=== PATIENT | male | born 1960 | race Caucasian/White ===

== ENCOUNTER → 2016-08-20 | Outpatient (CLI) | payer BC ==
[~2016-08-20] MED LIST: ADVIN10/60 INH; ASCO100T4 PO; CYAN100020 PO; FLVHFA110 INH; METO25TA3 PO; METO50TA7 PO; OXYC-57 PO
--- NOTE | 2016-08-20 13:27 | DIAGNOSTIC IMAGING REPORT ---
ABDOMEN 2VIEW W/PA CHEST RTN CLINICAL HISTORY: SEVERE ABDOMINAL CRAMPING, CONSTIPATION COMPARISON STUDY: No previous studies for comparison. FINDINGS: The soft tissues, psoas shadows, renal outlines and intestinal gas pattern appear normal. There is no evidence for bowel obstruction. There is no evidence for free intraperitoneal air. No abnormal abdominal calcifications are seen. A frontal view of the chest was performed and is unremarkable. IMPRESSION: Normal study. Electronically signed by: Ladarius Finch M.D. 08/20/2016 1:25 PM Dictated Date/Time: 08/20/2016 1:25 PM
== END | disposition home or self-care (01) ==
LOC: C.RAD1850 12:56
PROVIDERS: ATTEND Nurse Practitioner Family
DX: R10.84 Generalized abdominal pain (principal); K59.00 Constipation, unspecified

== ENCOUNTER 2016-08-22 18:22 | Emergency (ER) | payer BC ==
[~2016-08-22] VITALS: Ht 188 cm; Wt 93.0 kg
[~2016-08-22 18:22] MED LIST changes: -ASCO100T4 PO; -CYAN100020 PO; -FLVHFA110 INH; -METO25TA3 PO; -METO50TA7 PO; -OXYC-57 PO
[2016-08-22 18:24] VITALS: TEMP 37.3; Ht 188 cm; Wt 93.0 kg
[2016-08-22] MEDS ORDERED: SODIUM CHLORIDE 0.9% 1000ML 1,000 ML IV STA (21:06)
[2016-08-22] MEDS ORDERED: OPTIRAY 320 IV PRN (21:30)
[2016-08-22 21:39] LABS: BASO % 0.4 %; BASO ABS # 0.03 K/uL (0-0.2); COMPLETE YES; EOS % 2.2 %; HEMATOCRIT 43.5 % (42-52); IG% 0.7 %; LYMPH % 17.8 %; LYMPH ABS # 1.23 K/uL (1.2-3.4); MEAN CELL VOLUME 87.3 fL (80-100); MEAN CORPUSCULAR HEMOGLOBIN 30.5 pg (25-34); MEAN CORPUSCULAR HGB CONC 34.9 g/dl (32-36); MEAN PLATELET VOLUME 10.3 fL (7.4-10.4); MONO % 12.1 %; NEUT % 66.8 %; PLATELET COUNT 162 K/uL (130-400); RED BLOOD COUNT 4.98 M/uL (4.7-6.1); WHITE BLOOD COUNT 6.92 K/uL (4.8-10.8)
[2016-08-22 21:39] LABS: URINE APPEARANCE CLEAR (CLEAR); URINE COLOR DK YELLOW; URINE NITRITE NEG (NEG); URINE PH 5.5 (4.5-7.5); URINE SPECIFIC GRAVITY 1.025 (1.000-1.030); UROBILINOGEN NEG (NEG)
[2016-08-22] MEDS ORDERED: FLVHFA110 INH (21:40)
[2016-08-22] MEDS ORDERED: METO25TA3 PO (21:43)
[2016-08-22 21:47] LABS: ISTAT CREATININE 0.9 mg/dl (0.6-1.3); ISTAT IONIZED CALCIUM 1.08 mmol/l (1.12-1.32)
[2016-08-22 21:57] LABS: MANUAL MICROSCOPIC REQUIRED? NO; REVIEW REQ? NO; URINE BILIRUBIN NEG (NEG)
[2016-08-22 21:57] LABS: BUN/CREATININE RATIO 11.2 (10-20); POTASSIUM 3.7 mmol/L (3.5-5.1)
[2016-08-22 22:00] LABS: ALB/GLOB RATIO 1.1 (0.9-2)
--- NOTE | 2016-08-22 22:15 | EMERGENCY ROOM VISIT NOTE ---
History First contact with patient: 20:50 Chief Complaint: ABNORMAL LABS Stated Complaint: ABNORMAL LABS, ABDOMINAL PAIN, FEVER History of Present Illness The patient is a 55 year old male who presents to the Emergency Room with complaints of upper abdominal pain for the past 2 weeks. Patient states he has a constant dull pain, with intermittent episodes of severe intense pain. The pain is primarily in the epigastric region but does radiate to the right upper quadrant. Patient reports associated fevers/chills and night sweats. He has also noted that his urine is darker than usual, and notes light colored stools for the past several days. There is no associated nausea or vomiting. Patient states that he saw an urgent care provider yesterday where he had lab testing done and was told that his "liver tests and white blood cells were elevated." Today the patient saw his PCP, where he had right upper quadrant ultrasound done that was inconclusive, but did show some gallbladder sludge. Patient states his PCP encouraged him to come to the ER for further evaluation and possible CT scan. The patient denies chest pain, shortness of breath, palpitations, back pain, constipation or diarrhea. Review of Systems GENERAL: + Fevers, chills, malaise, night sweats. Denies unintentional weight changes. HEENT: Denies dizziness, visual problems, hearing loss, tinnitus. Denies difficulty swallowing or oral lesions. PULMONARY: Denies cough, shortness of breath, sputum production or hemoptysis. CARDIOVASCULAR: Denies chest pain, palpitations, dyspnea on exertion, orthopnea or peripheral edema. GASTROINTESTINAL: + Abdominal pain, light colored stools. Denies diarrhea, constipation, nausea, vomiting, or hematochezia. GENITOURINARY: Denies dysuria, frequency, urgency or nocturia. + Dark urine. NEUROLOGIC: Denies history of epilepsy, CVA, TIA or chronic headaches. MUSCULOSKELETAL: Denies history of joint tenderness/swelling. SKIN: Denies rashes or lesions. PSYCHIATRIC: Denies history of depression or mental illness. ENDOCRINE: Denies history of diabetes, thyroid disorders. Social History Smoking Status: Never Smoker Marital Status: Housing Status: lives with family Occupation Status: employed Current/Historical Medications Scheduled Fluticasone Propionate (Flovent Hfa), 2 PUFFS INH BID Metoprolol Succ (Toprol Xl) (Toprol-Xl), 37.5 MG PO DAILY Allergies Coded Allergies: No Known Allergies (Unverified , NONE, 08/22/16) Physical Exam Vital Signs Date Time Temp Pulse Resp B/P (MAP) Pulse Ox O2 Delivery O2 Flow Rate FiO2 08/22/16 22:18 79 18 137/85 98 Room Air 08/22/16 20:42 84 08/22/16 20:40 85 18 156/93 96 Room Air 08/22/16 18:24 37.3 48 17 154/74 99 Room Air Physical Exam CONSTITUTIONAL: No acute distress. Nontoxic appearing. Well hydrated, well appearing and well nourished. Alert and oriented X 4 with normal affect. HEENT: Normocephalic, atraumatic. Pupils equal, round and reactive to light, EOMI. TMs normal. Pharynx normal. Moist mucous membranes. Icteric sclera bilaterally. NECK: Supple, full active range of motion without discomfort. RESPIRATORY: Clear to auscultation bilaterally with no wheezing, crackles, rhonchi or stridor. Equal expansion bilaterally. CARDIOVASCULAR: Regular rate and rhythm with no murmurs, rubs or gallops. Normal peripheral perfusion. No edema. GASTROINTESTINAL: Tenderness to palpation of the epigastric and right upper quadrant. No rebound, no guarding, negative Franklin's. Soft, nondistended. Bowel sounds present in all quadrants. MUSCULOSKELETAL: Full range of motion of all joints without discomfort. INTEGUMENTARY: No rash or other significant dermatologic conditions noted. Jaundiced. NEUROLOGIC: Cranial nerves II-XII grossly intact. No focal neurologic deficits noted. Medical Decision & Procedures ER Provider Diagnostic Interpretation: ABDOMINAL ULTRASOUND COMPLETE HISTORY: Abnormal liver function test AB Pain, abnormal RESULTS OF LIVER FUNCTION TEST. COMPARISON: None. FINDINGS: Pancreas: The pancreas demonstrates a normal echotexture. Liver: Several small cysts measuring up to 2 cm. Otherwise uniform echogenicity. Gallbladder: Small amount of sludge within the region of the gallbladder neck. No definite shadowing gallstones. Gallbladder wall 3 mm. CBD: 5 mm Kidneys: No hydronephrosis. Spleen: Normal in size. Aorta: Normal in caliber. IVC: Patent. IMPRESSION: 1. Small amount of sludge within the gallbladder lumen at the level of the gallbladder neck. 2. Normal caliber bile duct. Gallbladder wall top normal at 3 mm 3. Several small hepatic cysts. 4. Otherwise negative study. ----- CT OF THE ABDOMEN AND PELVIS WITH CONTRAST CLINICAL HISTORY: Right upper quadrant pain, fever, leukocytosis and jaundice. COMPARISON STUDY: Abdominal ultrasound August 22, 2016. TECHNIQUE: Following IV administration of 93 mL of Optiray-320, axial images of the abdomen and pelvis were obtained from the lung bases to the proximal femurs. Images were reviewed in the axial, sagittal, and coronal planes. IV contrast was administered without complication. CT DOSE: 463.85 mGy.cm FINDINGS: Lung bases are clear. Water attenuation hepatic lesions measure up to 2 cm. These reflect cysts. A 1.3 cm hypodense lateral segment lesion may have nodular peripheral enhancement and could reflect a small hemangioma. There are several hepatic lesions which are too small to characterize. The spleen, adrenal glands, kidneys and pancreas are normal. There is a diverticulum of the second portion of the duodenum. There is minimal hyperdense material within the dependent aspect of this diverticulum. This is unlikely to be within the distal common bile duct. There is no biliary or pancreatic ductal dilatation. The main, left and right portal veins are patent. There is no peripancreatic or pericholecystic infiltration. No hydronephrosis. There are no enlarged lymph nodes. The appendix is normal. No suspicious osseous lesions are present. IMPRESSION: 1. No acute process within the abdomen or pelvis. 2. No biliary or pancreatic ductal dilatation. No pancreatic mass identified by CT. 3. Multiple hepatic cysts. Several hypodense hepatic lesions which are too small to characterize. Possible 1.3 cm left hepatic lobe hemangioma. Laboratory Results 08/22/16 21:20 Red Blood Count 4.98, Mean Corpuscular Volume 87.3, Mean Corpuscular Hemoglobin 30.5, Mean Corpuscular Hemoglobin Concent 34.9, Mean Platelet Volume 10.3, Neutrophils (%) (Auto) 66.8, Lymphocytes (%) (Auto) 17.8, Monocytes (%) (Auto) 12.1, Eosinophils (%) (Auto) 2.2, Basophils (%) (Auto) 0.4, Neutrophils # (Auto ) 4.62, Lymphocytes # (Auto) 1.23, Monocytes # (Auto) 0.84, Eosinophils # (Auto ) 0.15, Basophils # (Auto) 0.03 08/22/16 21:20 Test 08/22/16 20:35 08/22/16 21:20 08/22/16 21:28 08/22/16 21:35 Urine Color DK YELLOW Urine Appearance CLEAR (CLEAR) Urine pH 5.5 (4.5-7.5) Urine Specific Stafford 1.025 (1.000-1.030) Urine Protein 2+ (NEG) Urine Glucose (UA) NEG (NEG) Urine Ketones 1+ (NEG) Urine Occult Blood NEG (NEG) Urine Nitrite NEG (NEG) Urine Bilirubin NEG (NEG) Urine Urobilinogen NEG (NEG) Urine Leukocyte Esterase NEG (NEG) Urine WBC (Auto) 1-5 /hpf (0-5) Urine RBC (Auto) 0-4 /hpf (0-4) Urine Hyaline Casts (Auto) 1-5 /lpf (0-5) Urine Epithelial Cells (Auto) 5-10 /lpf (0-5) Urine Bacteria (Auto) NEG (NEG) White Blood Count 6.92 K/uL (4.8-10.8) Red Blood Count 4.98 M/uL (4.7-6.1) Hemoglobin 15.2 g/dL (14.0-18.0) Hematocrit 43.5 % (42-52) Mean Corpuscular Volume 87.3 fL (80-100) Mean Corpuscular Hemoglobin 30.5 pg (25-34) Mean Corpuscular Hemoglobin Concent 34.9 g/dl (32-36) Platelet Count 162 K/uL (130-400) Mean Platelet Volume 10.3 fL (7.4-10.4) Neutrophils (%) (Auto) 66.8 % Lymphocytes (%) (Auto) 17.8 % Monocytes (%) (Auto) 12.1 % Eosinophils (%) (Auto) 2.2 % Basophils (%) (Auto) 0.4 % Neutrophils # (Auto) 4.62 K/uL (1.4-6.5) Lymphocytes # (Auto) 1.23 K/uL (1.2-3.4) Monocytes # (Auto) 0.84 K/uL (0.11-0.59) Eosinophils # (Auto) 0.15 K/uL (0-0.5) Basophils # (Auto) 0.03 K/uL (0-0.2) RDW Standard Deviation 40.8 fL (36.4-46.3) RDW Coefficient of Variation 12.7 % (11.5-14.5) Immature Granulocyte % (Auto) 0.7 % Immature Granulocyte # (Auto) 0.05 K/uL (0.00-0.02) Est Creatinine Clear Calc Drug Dose 98.2 ml/min Estimated GFR () 98.5 Estimated GFR (Non- 84.9 BUN/Creatinine Ratio 11.2 (10-20) Calcium Level 9.9 mg/dl (8.5-10.1) Total Bilirubin 1.4 mg/dl (0.2-1) Aspartate Amino Transf (AST/SGOT) 23 U/L (15-37) Alanine Aminotransferase (ALT/SGPT) 135 U/L (12-78) Alkaline Phosphatase 96 U/L (45-117) Total Protein 7.1 gm/dl (6.4-8.2) Albumin 3.7 gm/dl (3.4-5.0) Globulin 3.4 gm/dl (2.5-4.0) Albumin/Globulin Ratio 1.1 (0.9-2) Lipase 109 U/L (73-393) Bedside Lactic Acid Venous 1.01 mmol/L (0.90-1.70) Bedside Hemoglobin 15.0 g/dl (14.0-18.0) Bedside Hematocrit 44 % (42-52) Bedside Sodium 135 mEq/L (135-144) Bedside Potassium 3.8 mEq/L (3.3-5.0) Bedside Chloride 96 mEq/L (101-112) Bedside Total CO2 27 mEq/l (24-31) Anion Gap 18.0 mmol/L (16-25) Bedside Blood Urea Nitrogen 11 mg/dl (7-18) Bedside Creatinine 0.9 mg/dl (0.6-1.3) Bedside Glucose (other) 108 mg/dl (70-99) Bedside Ionized Calcium (Randall) 1.08 mmol/l (1.12-1.32) Medications Administered Medications (Trade) Dose Ordered Sig/Jaya Route Start Time Stop Time Status Last Admin Dose Admin Sodium Chloride 1,000 ml @ 999 mls/hr Q1H1M STAT IV 08/22/16 21:06 08/22/16 22:06 DC 08/22/16 21:06 999 MLS/HR Medical Decision CC: Patient presenting with complaint of upper abdominal pain 2 weeks Interpretation of Labs: No leukocytosis, no anemia, no significant electrolyte abnormalities, normal renal function, slightly elevated ALT and T bili, liver enzymes otherwise normal, normal lipase, normal lactic acid. No UTI. Differential Diagnosis: Includes, but not limited to cholecystitis, cholelithiasis, cholangitis, gastritis, peptic ulcer disease, pancreatitis, intra-abdominal abscess, hepatic mass Medication Reconciliation: I attest that I have personally reviewed the patient' s current medication list. Vital signs review: I reviewed the patient's vital signs and interpret them as follows: T: Afebrile; BP: Hypertensive; HR: bradycardic (asymptomatic); RR: WNL; Pulse Ox: WNL on RA. Blood pressure screening: The patient was found to have an elevated blood pressure and was referred to their primary doctor for recheck and further treatment. Summary: Patient was evaluated at bedside, history of physical exam performed. Patient is alert and oriented, no acute distress and nontoxic appearing. He appears mildly jaundiced and sclera are slightly icteric. He has very mild tenderness to palpation of the epigastric and right upper quadrant abdomen. No peritoneal signs. Negative Franklin sign. Patient currently denies any pain at rest and declines pain medication. Right upper quadrant ultrasound that was done earlier today was reviewed at bedside with the patient, noting some gallbladder sludge but no evidence of acute cholecystitis. Given patient's jaundiced appearance, obstructive process cannot be ruled out. Also concerned regarding history of fever/chills and night sweats. Orders were placed at bedside for labs, UA, IV fluid bolus, CT abdomen/pelvis with contrast to evaluate for intra-abdominal abscess/mass. Patient discussed with Dr. Cottrell, who agrees with my assessment and plan. Labs reviewed as above, show mildly elevated T bili and ALT, otherwise unremarkable. No leukocytosis. CT abd/pel reviewed, no acute process, no obstructive process. Patient was updated on all results and plan for discharge. Patient remains well appearing and denies any pain currently. I instructed the patient to follow up closely with his PCP and recommended referral to GI for further evaluation of his gallbladder. Patient verbalized understanding and agreement with this plan. Patient reassessed multiple times throughout ED stay, he remained stable and pain free, stable at time of discharge. Impression Primary Impression: Right upper quadrant abdominal pain Additional Impression: Jaundice Departure Information Dispostion Home / Self-Care Condition GOOD Referrals Doe, Dongsheng,M.D. (PCP) Patient Instructions ED Abdominal Pain Gallstone Poss, [facility] Additional Instructions You have been treated in the Emergency Department your Abdominal Pain. Laboratory results and imaging studies have ruled out any emergent causes for your abdominal pain which would warrant admission or surgery. For pain control, you can use the following [id number] medicines (if >12 yo): - Regular strength (325mg/tab) Tylenol (acetaminophen) 2 tabs every 4-6 hours as needed. Do not exceed 10 tablets in a 24 hour period. Avoid taking more than 4 grams (4000 mg) of Tylenol per day. This includes any other sources of acetaminophen you may take on a regular basis. - Regular strength (200 mg/tab) Advil (ibuprofen) 1-2 tabs every 4-6 hours as needed. Do not exceed a dose of 3200 mg per day. Drink plenty of water and stay well hydrated. As with any trip to the Emergency Department, you should follow-up with your Primary Care Provider in 2-3 days from today's visit. You should discuss possible referral to a binder layer specialist to further evaluate for possible gallbladder disease. Possible tests for this would include a HIDA scan , MRCP, or ERCP. You should discuss this with your PCP. Return to the emergency department if your symptoms persist despite treatment plan outlined above or if the following symptoms occur: increased fevers, chills , worsening nausea/vomiting, blood in your stool or urine, or any other concerns. Problem Qualifiers
--- NOTE | 2016-08-22 22:30 | DIAGNOSTIC IMAGING REPORT ---
CT OF THE ABDOMEN AND PELVIS WITH CONTRAST CLINICAL HISTORY: Right upper quadrant pain, fever, leukocytosis and jaundice. COMPARISON STUDY: Abdominal ultrasound August 22, 2016. TECHNIQUE: Following IV administration of 93 mL of Optiray-320, axial images of the abdomen and pelvis were obtained from the lung bases to the proximal femurs. Images were reviewed in the axial, sagittal, and coronal planes. IV contrast was administered without complication. CT DOSE: 463.85 mGy.cm FINDINGS: Lung bases are clear. Water attenuation hepatic lesions measure up to 2 cm. These reflect cysts. A 1.3 cm hypodense lateral segment lesion may have nodular peripheral enhancement and could reflect a small hemangioma. There are several hepatic lesions which are too small to characterize. The spleen, adrenal glands, kidneys and pancreas are normal. There is a diverticulum of the second portion of the duodenum. There is minimal hyperdense material within the dependent aspect of this diverticulum. This is unlikely to be within the distal common bile duct. There is no biliary or pancreatic ductal dilatation. The main, left and right portal veins are patent. There is no peripancreatic or pericholecystic infiltration. No hydronephrosis. There are no enlarged lymph nodes. The appendix is normal. No suspicious osseous lesions are present. IMPRESSION: 1. No acute process within the abdomen or pelvis. 2. No biliary or pancreatic ductal dilatation. No pancreatic mass identified by CT. 3. Multiple hepatic cysts. Several hypodense hepatic lesions which are too small to characterize. Possible 1.3 cm left hepatic lobe hemangioma. Electronically signed by: Washington Funez M.D. 08/22/2016 10:28 PM Dictated Date/Time: 08/22/2016 10:17 PM
[2016-08-22 22:37] LABS: CALCIUM 9.9 mg/dl (8.5-10.1)
[2016-08-23 00:09] VITALS: BP 135/79; PULSE 74; O2SAT 97
[2016-10-21] MEDS ORDERED: METO50TA7 PO (11:00)
[2016-10-21] MEDS ORDERED: CYAN100020 PO (11:00)
[2016-10-21] MEDS ORDERED: ASCO100T4 PO (11:00)
== END 2016-08-23 00:01 | disposition home or self-care (01) ==
LOC: C.EDB 18:23
DX: R10.11 Right upper quadrant pain (principal); R17 Unspecified jaundice

== ENCOUNTER → 2016-08-22 | Outpatient (CLI) | payer BC ==
--- NOTE | 2016-08-22 14:49 | DIAGNOSTIC IMAGING REPORT ---
ABDOMINAL ULTRASOUND COMPLETE HISTORY: Abnormal liver function test AB Pain, abnormal RESULTS OF LIVER FUNCTION TEST. COMPARISON: None. FINDINGS: Pancreas: The pancreas demonstrates a normal echotexture. Liver: Several small cysts measuring up to 2 cm. Otherwise uniform echogenicity. Gallbladder: Small amount of sludge within the region of the gallbladder neck. No definite shadowing gallstones. Gallbladder wall 3 mm. CBD: 5 mm Kidneys: No hydronephrosis. Spleen: Normal in size. Aorta: Normal in caliber. IVC: Patent. IMPRESSION: 1. Small amount of sludge within the gallbladder lumen at the level of the gallbladder neck. 2. Normal caliber bile duct. Gallbladder wall top normal at 3 mm 3. Several small hepatic cysts. 4. Otherwise negative study Electronically signed by: Ladarius Finch M.D. 08/22/2016 2:47 PM Dictated Date/Time: 08/22/2016 2:42 PM
== END | disposition home or self-care (01) ==
LOC: C.ULTR 13:39
PROVIDERS: ATTEND Nurse Practitioner Family
DX: R10.84 Generalized abdominal pain (principal); R94.5 Abnormal results of liver function studies; D72.829 Elevated white blood cell count, unspecified

== ENCOUNTER → 2016-08-27 | Outpatient (CLI) | payer BC ==
[~2016-08-27] MED LIST changes: -ADVIN10/60 INH; +ASCO100T4 PO; +CYAN100020 PO; +FLVHFA110 INH; +METO25TA3 PO; +METO50TA7 PO; +OXYC-57 PO; +SINCALIDE INJ 1.8 MCG in SODIUM CHLORIDE 0.9% 100ML 100 ML IV SCH
--- NOTE | 2016-08-27 09:58 | DIAGNOSTIC IMAGING REPORT ---
NUCLEAR HEPATOBILIARY SCAN WITH EJECTION FRACTION IMAGING CLINICAL HISTORY: Right upper quadrant abdominal pain. COMPARISON STUDY: Abdominal CT dated 08/22/2016. TECHNIQUE: Dynamic images of the liver and anterior abdomen were obtained every 5 minutes for a total of 60 minutes following the IV administration of 5.7mCi of technetium 99m Choletec. 1.8 mcg of sincalide was then injected with additional images acquired every 5 minutes for 45 minutes to calculate the gallbladder ejection fraction. FINDINGS: The hepatobiliary scan shows prompt and homogeneous hepatic uptake. There is visualized activity within the intra and extrahepatic biliary tree at 10 minutes, and within the gallbladder at 45 minutes. There is normal biliary to bowel transit, with small bowel visualized by 25 minutes. On the sincalide imaging, the gallbladder ejection fraction was measured at 16%. IMPRESSION: 1. There is no scintigraphic evidence of cholecystitis. 2. The gallbladder ejection fraction is diminished, measuring 16%. This suggests biliary dyskinesia. Electronically signed by: Luis Armando Partida M.D. 08/27/2016 9:56 AM Dictated Date/Time: 08/27/2016 9:54 AM
== END | disposition home or self-care (01) ==
LOC: C.NUCL 07:14
PROVIDERS: ATTEND Family Medicine
DX: R10.9 Unspecified abdominal pain (principal); K87 Disorders of gallbladder, biliary tract and pancreas in diseases classified elsewhere

== ENCOUNTER 2016-10-24 09:06 | Day surgery (SDC) | payer BC ==
[2016-10-21 11:01] VITALS: BMI 25.0
[~2016-10-24] VITALS: Ht 188 cm; Wt 90.9 kg
[~2016-10-24 09:06] MED LIST changes: +ASCO100T PO; -ASCO100T4 PO; +LACTATED RINGER'S 1000ML 1,000 ML IV SCH; -METO25TA3 PO; -OXYC-57 PO; -SINCALIDE INJ 1.8 MCG in SODIUM CHLORIDE 0.9% 100ML 100 ML IV SCH
[2016-10-24 09:20] VITALS: BP 138/88; PULSE 61; TEMP 36.8; O2SAT 98; Ht 188 cm; Wt 90.9 kg
--- NOTE | 2016-10-24 10:27 | History & Physical Bridge Note ---
H&P Re-Evaluation Bridge Note: I have examined the patient, reviewed the History & Physical and in the interval since the performance of the History & Physical I have noted the following changes of clinical significance: No changes noted family at bedside, all questions answered
[2016-10-24] MEDS ORDERED: OXYC-57 PO (10:32)
--- NOTE | 2016-10-24 10:33 | Discharge Instructions ---
Discharge Instructions Date of Service Oct 24, 2016. Visit Reason for Visit: Cholelithiasis Discharge Discharge Diagnosis / Problem: laparoscopic cholecystectomy Discharge Goals Goal(s): Decrease discomfort Activity Recommendations Activity Limitations: as noted below Lifting Limitations: no more than 10 pounds Shower/Bathe: tomorrow Driving or Machine Use: resume 3 days after discharge Anesthesia . Post Anesthesia Instructions: If you have had General Anesthesia or IV Sedation: * Do not drive today. * Resume driving when surgeon permits. * Do not make important decisions or sign legal documents today. * Call surgeon for: 1. Temperature elevations greater than 101 degrees F. 2. Uncontrollable pain. 3. Excessive bleeding. 4. Persistent nausea and vomiting. 5. Medication intolerance (nausea, vomiting or rash). * For nausea and vomiting use only clear liquids such as: tea, soda, bouillon until nausea subsides, then gradually increase diet as tolerated. * If you have any concerns or questions, call your surgeon's office. If physician is unavailable and it is an emergency, call 911 or go to the nearest emergency room. . Instructions / Follow-Up Instructions / Follow-Up Dr. Bhatti in 1 week, call [phone] for any questions or concerns Diet Recommendations Recommended Home Diet: no limitations Pending Studies Studies pending at discharge: no Medical Emergencies . Who to Call and When: Medical Emergencies: If at any time you feel your situation is an emergency, please call 911 immediately. . Non-Emergent Contact Non-Emergency issues call your: Surgeon Call Non-Emergent contact if: you have a fever, temperature is above 101.5, your pain is not controlled, wound has increased redness, you have any medication questions . . "Provider Documentation" section prepared by Landry Gu. . [place] Drug Monitoring Program Search Results: no issues identified
[2016-10-24] MEDS ORDERED: CONRAY 60% 50 ML VIAL ONE (10:35)
[2016-10-24] MEDS ORDERED: LIDOCAINE/EPINEPHRINE 1% 20 ML VIAL ONE (10:35)
[2016-10-24] MEDS ORDERED: FENTANYL CITRATE INJ 50 MCG/1 ML 2 ML VIAL ONE ×2 (10:39→11:09)
[2016-10-24] MEDS ORDERED: MIDAZOLAM HCL 1 MG/ML 2ML VIAL ONE (10:39)
[2016-10-24] MEDS ORDERED: LABETALOL HCL IV 5 MG/ML 20ML IV PRN (11:00)
[2016-10-24] MEDS ORDERED: ONDANSETRON INJ 2 MG/ML 2 ML VIAL IV PRN ×2 (11:00→11:45)
[2016-10-24] MEDS ORDERED: ATROPINE SULFATE 0.1 MG/ML 5ML SYR IV PRN (11:00)
[2016-10-24] MEDS ORDERED: KETOROLAC TROMETHAMINE 30 MG/ML VIAL IV. PRN (11:00)
[2016-10-24] MEDS ORDERED: FENTANYL CITRATE INJ 50 MCG/1 ML 2 ML VIAL IV PRN (11:00)
[2016-10-24] MEDS ORDERED: LACTATED RINGER'S 1000ML 1,000 ML IV SCH (11:38)
[2016-10-24] MEDS ORDERED: MoRPHine SULFATE 2 MG/ML CARP IV PRN (11:45)
[2016-10-24] MEDS ORDERED: OXYCODONE/ACETAMINOPHEN 5-325 TAB PO PRN (11:45)
--- NOTE | 2016-10-24 11:50 | [facility] Operative Report ---
Operative Report Operative Date Oct 24, 2016. Pre-Operative Diagnosis Cholelithiasis Post-Operative Diagnosis Same Procedure(s) Performed Laparoscopic cholecystectomy with Cholangiogram Surgeon Dr Bhatti Lab Aide Surgeon(s) Landry Gu PA-C Estimated Blood Loss 5ML Findings ccc Specimens A. Gallbladder Description of Procedure OR summary dictated confirmation number [id number] I attest to the content of the Intraoperative Record and any orders documented therein. Any exceptions are noted below.
[2016-10-24] MEDS ORDERED: ROCURONIUM BROMIDE 10 MG/ML 5 ML VIAL ONE (11:57)
[2016-10-24] MEDS ORDERED: DEXAMETHASONE SOD INJ 4 MG/ML VIAL ONE (11:57)
[2016-10-24] MEDS ORDERED: PROPOFOL IV EMULSION 10 MG/ML 20 ML VIAL IV ONE (11:57)
[2016-10-24] MEDS ORDERED: ONDANSETRON INJ 2 MG/ML 2 ML VIAL ONE (11:57)
[2016-10-24] MEDS ORDERED: GLYCOPYRROLATE INJ 0.2 MG/ML VIAL ONE (11:57)
[2016-10-24] MEDS ORDERED: NEOSTIGMINE METHYLSULFATE 5 MG/5 ML SYR ONE (11:57)
[2016-10-24] MEDS ORDERED: LIDOCAINE HCL 2% 2 ML VIAL (20MG/ML) ONE (11:57)
--- NOTE | 2016-10-24 12:00 | DIAGNOSTIC IMAGING REPORT ---
CHOLANGIOGRAM O.R. CLINICAL HISTORY: Intraoperative cholangiogram. Cholecystectomy. COMPARISON STUDY: CT scan dated 08/22/2016 FLUOROSCOPY TIME: 5 seconds. NUMBER OF FLUOROSCOPIC IMAGES: 2 FINDINGS: The cystic duct was cannulated and contrast was instilled into the common bile duct. There is free flow into the duodenum. There are no filling defects to indicate retained calculi. IMPRESSION: No retained calculi identified. Electronically signed by: Camilo Dockery M.D. 10/24/2016 11:59 AM Dictated Date/Time: 10/24/2016 11:58 AM
--- NOTE | 2016-10-24 12:14 | OPERATIVE REPORT ---
DATE OF OPERATION: 10/24/2016 PREOPERATIVE DIAGNOSIS: Chronic cholecystitis, cholelithiasis. POSTOPERATIVE DIAGNOSIS: Same. OPERATIVE PROCEDURE: Laparoscopic cholecystectomy, intraoperative cholangiogram. SURGEON: Dr. Bhatti. INTERVENTIONAL RADIOLOGY TECH: Kash Gu PA-C. OPERATION AND FINDINGS: SUMMARY: After induction of general endotracheal anesthesia, patient's abdomen was prepped with Betadine scrubbing solution and properly draped. A small transverse incision was made supraumbilically sufficient enough to place a Veress needle followed by CO2, followed by 5 mm trocar. Point of entry inspected and no injury identified. Under direct visualization, we placed a 5 mm epigastric, two 5 mm subcostal ports with preemptive local analgesia 1% Xylocaine. What we identified at this time was the gallbladder was elevated. There were significant omental adhesions to the gallbladder, some of these were really scarred in. Some of them we could easily pull through. All bleeders in the omentum was cauterized. We then dissected down towards the triangle of Calot, identified the cystic duct and cystic artery. A window was created between, a clip was placed in the cystic duct proximally and then the artery seemed to be very close to that. Thereafter, I elected to divide the artery by doubly clipped proximally and once distally and divided. A small opening in cystic duct was made. A #4 ureteral catheter transversing the abdominal wall positioned in the cystic duct. Serial x-rays were taken which showed flow in the duodenum. The cystic duct was corkscrew structure. We could see the proximal hepatic radicals, there seemed to be 1 area that did not opacify, just could not get enough dye. There was no real obstruction common bile duct with free flow into the duodenum. At this point the cholangiocatheter was removed. The cystic duct was doubly clipped and divided. The patient had a few other accessory arteries and posterior branches of the cystic artery which we cauterized and clipped. The gallbladder was removed from the liver using as much of the posterior peritoneal ligament intact and placed in an Endopouch and taken out through the epigastric port. At this point the subhepatic and suprahepatic area was checked for hemostasis and appeared satisfactory. I finally placed a camera in right subcostal port to visualize the umbilical opening. There were no adhesions to the anterior abdominal wall in that area. At this point individual trocars removed under direct visualization, lastly the umbilical trocar. Wounds were closed with 4-0 Monocryl. Steri-Strips applied. The procedure was tolerated well by the patient and was taken to recovery room in good condition. I attest to the content of the Intraoperative Record and any orders documented therein. Any exception s are noted below.
--- NOTE | 2016-10-24 12:21 | Anesthesiology Progress Note ---
Anesthesia Post Op Note Date & Time Oct 24, 2016 at 12:20 Vital Signs Pain Intensity: 0 Vital Signs Past 12 Hours Date Time Temp Pulse Resp B/P (MAP) Pulse Ox O2 Delivery O2 Flow Rate FiO2 10/24/16 12:15 47 12 140/91 100 Room Air 10/24/16 12:05 48 17 145/90 100 Oxymask 10 10/24/16 11:55 53 17 172/97 100 Oxymask 10/24/16 11:49 36.2 55 16 159/88 98 Oxymask 10 10/24/16 09:20 36.8 61 18 138/88 (105) 98 Room Air Notes Mental Status: alert / awake / arousable, participated in evaluation Pt Amnestic to Procedure: Yes Nausea / Vomiting: adequately controlled Pain: adequately controlled Airway Patency, RR, SpO2: stable & adequate BP & HR: stable & adequate Hydration State: stable & adequate Anesthetic Complications: no major complications apparent
[2016-10-24 12:35] VITALS: BP 164/86; PULSE 56; TEMP 36.5; O2SAT 97
[2016-10-24 13:05] VITALS: BP 161/83; PULSE 64; O2SAT 97
[2016-10-24 13:35] VITALS: BP 161/83; PULSE 62; TEMP 36.5; O2SAT 96
== END 2016-10-24 14:20 | disposition home or self-care (01) ==
LOC: C.ACU 09:06
PROVIDERS: ATTEND Surgery
DX: K80.12 Calculus of gallbladder with acute and chronic cholecystitis without obstruction (principal); J45.909 Unspecified asthma, uncomplicated; Z82.49 Family history of ischemic heart disease and other diseases of the circulatory system

== ENCOUNTER → 2017-07-08 | Outpatient (CLI) | payer OTHER ==
[~2017-07-08] MED LIST changes: -ASCO100T PO; +ASCO100T4 PO; -LACTATED RINGER'S 1000ML 1,000 ML IV SCH; -METO50TA7 PO; +METO50TA8 PO
--- NOTE | 2017-07-08 10:22 | DIAGNOSTIC IMAGING REPORT ---
CHEST 2 VIEWS ROUTINE CLINICAL HISTORY: 56 years-old Male presenting with CHEST PAIN, right-sided pain. TECHNIQUE: PA and lateral views of the chest were obtained. COMPARISON: 08/20/2016. FINDINGS: Cardiomediastinal silhouette normal. Irregular opacity in the central right mid lung, which localizes to the anterior segment of the right upper lobe. No left lung opacity. No pleural effusion or pneumothorax. Osseous structures normal. Upper abdomen normal. IMPRESSION: 1. Findings consistent with right upper lobe pneumonia. This should be followed to resolution. Electronically signed by: Claudio Oneill M.D. 07/08/2017 10:21 AM Dictated Date/Time: 07/08/2017 10:20 AM
== END | disposition home or self-care (01) ==
LOC: C.RAD1850 09:42
PROVIDERS: ATTEND Family Medicine Adolescent Medicine
DX: R07.81 Pleurodynia (principal); R91.8 Other nonspecific abnormal finding of lung field